=== PATIENT | female | born 1975 | race Caucasian/White ===

== ENCOUNTER 2022-12-21 00:42 | Emergency (ER) | payer OTHER ==
[2022-12-21 00:50] VITALS: BP 143/89; PULSE 66; RESP 18; TEMP 97.8; BMI 30.4
[2022-12-21] MEDS ORDERED: DOXYCYCLINE HYCLATE 100 MG CAPSULE PO ONE ×2 (01:49→01:50)
[2022-12-21] MEDS ORDERED: IBUPROFEN 600 MG TABLET (FP) PO ONE ×2 (01:49→01:50)
== END 2022-12-21 02:18 | disposition home or self-care (01) ==
LOC: JER 00:42
DX: K08.89 Other specified disorders of teeth and supporting structures (principal)
CPT/HCPCS: 99283-25